=== PATIENT | female | born 1945 | race Two or more races ===

== ENCOUNTER 2024-07-03 16:30 | Emergency (ER) | payer OTHER ==
[~2024-07-03] VITALS: Ht 154.9 cm; Wt 95.3 kg
[2024-07-03] MEDS ORDERED: NORVASC5 MG PO (17:07)
[2024-07-03] MEDS ORDERED: ONDANSETRON HCL 2 MG/ML VIAL IV ONE (17:45)
[2024-07-03] MEDS ORDERED: FAMOTIDINE/PF 20 MG/2 ML VIAL IV ONE (17:45)
[2024-07-03] MEDS ORDERED: 0.9 % SODIUM CHLORIDE 500 ML IV ONE (17:45)
[2024-07-03] MEDS ORDERED: KETOROLAC TROMETHAMINE 30 MG VIAL IV ONE (17:45)
[2024-07-03] MEDS ORDERED: FAMOTIDINE/PF 20 MG/2 ML VIAL ONE (17:48)
[2024-07-03] MEDS ORDERED: KETOROLAC TROMETHAMINE 30 MG VIAL ONE (17:48)
[2024-07-03] MEDS ORDERED: ONDANSETRON HCL 2 MG/ML VIAL ONE (17:48)
[2024-07-03 18:23] LABS: HEMATOCRIT 41.8 % (36.0-45.00); HEMOGLOBIN 14.3 g/dL (12.0-15.00); MEAN CELL VOLUME 95.2 fL (80.00-100.00); MEAN CORPUSCULAR HEMOGLOBIN 32.5 pg (27.00-32.0); MEAN CORPUSCULAR HGB CONC 34.2 g/dl (32.0-36.0); PLATELET COUNT 203 K/uL (150-450); RED BLOOD COUNT 4.39 M/uL (4.00-6.00); RED CELL DISTRIBUTION WIDTH 14.5 % (11.5-14.5)
[2024-07-03 18:37] LABS: PH,URINE 6.5 (5.0-8.0); URINE APPEARANCE Clear; URINE BILIRRUBIN Negative (NEGATIVE); URINE BLOOD Moderate; URINE COLOR Yellow; URINE GLUCOSE Negative (NEGATIVE); URINE KETONE Negative (NEGATIVE); URINE LEUKOCYTE Trace; URINE NITRATE Negative; URINE PROTEIN Negative (NEGATIVE); URINE UROBILINOGEN 0.2 E.U./dl
[2024-07-03 18:39] LABS: URINE BACTERIA 17.1 uL (0.0-1933); URINE EPITHELIAL CELLS 5.2 uL (0.0-38.8); URINE RBC 36.3 uL (0.0-20.8); URINE WBC 8.5 uL (0.0-23.2)
[2024-07-03] MEDS ORDERED: TAMSULOSIN HCL 0.4 MG CAP PO ONE ×2 (18:43→18:45)
[2024-07-03] MEDS ORDERED: CEFTRIAXONE SODIUM 1,000 MG VIAL ONE (18:43)
[2024-07-03] MEDS ORDERED: CEFTRIAXONE SODIUM 1,000 MG VIAL IV ONE (18:45)
[2024-07-03 19:26] LABS: ALBUMIN 3.4 gm/dL (3.4-5.0); BILIRUBIN TOTAL 0.73 mg/dL (0.3-1.2); CALCIUM 11.2 mg/dL (8.5-10.1); CREATININE SERUM 0.76 mg/dL (0.55-1.02); GFR 73.6; GLOBULINA 4.3 G/DL (2.4-3.5); POTASSIUM 4.24 mEq/L (3.5-5.1); TOTAL PROTEIN 7.7 gm/dL (6.4-8.2)
[2024-07-03] MEDS ORDERED: ONDANSETRON ODT4 MG PO (19:55)
[2024-07-03] MEDS ORDERED: TAMS0.4C PO (19:55)
[2024-07-03] MEDS ORDERED: KETO10TA2 PO (20:05)
== END 2024-07-03 20:13 ==
LOC: ER 16:33
PROVIDERS: Emergency Medicine; General Practice
DX: N20.0 Calculus of kidney (principal); R10.9 Unspecified abdominal pain; I10 Essential (primary) hypertension
CPT/HCPCS: 36415; 74176; 96365; 96366; 99284; J7030